=== PATIENT | male | born 1990 | race Two or more races ===

== ENCOUNTER 2017-09-22 02:20 | Emergency (ER) | payer MEDICAID ==
[2017-09-22 02:36] VITALS: RESP 16
--- NOTE | 2017-09-22 03:07 | ED PDOC ---
HPI: Eye Injury/Pain Time Seen by Provider: 09/22/17 02:43 Chief Complaint (Nursing): Eye Problem Chief Complaint (Provider): Bilateral eye irritation, drainage History Per: Patient History/Exam Limitations: no limitations Onset/Duration Of Symptoms: Days (4) Current Symptoms Are (Timing): Still Present Additional Complaint(s): 27 yo male with no medical problems presents with 4 days of bilateral eye drainage, redness and irritation. Pt states he also has been having bilateral knee discomfort since yesterday. Pt denies N/V/D. Pt denies dysuria. 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 PT states he is sexually active but always uses protection. Past Medical History Reviewed: Historical Data, Nursing Documentation, Vital Signs Vital Signs: Last Vital Signs Temp 100.6 F H 09/22/17 02:34 Pulse 104 H 09/22/17 02:34 Resp 16 09/22/17 02:34 BP 124/76 09/22/17 02:34 Pulse Ox 99 09/22/17 02:34 - Medical History PMH: HIV - Surgical History Surgical History: No Surg Hx - Family History Family History: States: No Known Family Hx - Living Arrangements Living Arrangements: With Family - Social History Current smoker - smoking cessation education provided: No - Home Medications Home Medications: Ambulatory Orders Medication Instructions Recorded Polymyxin/Trimethoprim Sulfate 1 drop XX Q6H 10 Days bottle 09/22/17 [Polytrim Ophth Soln] - Allergies Allergies/Adverse Reactions: Allergies Allergy/AdvReac Type Severity Reaction Status Date / Time No Known Allergies Allergy Verified 09/22/17 02:36 Review of Systems ROS Statement: Except As Marked, All Systems Reviewed And Found Negative Constitutional: Positive for: Fever. Negative for: Chills Eyes: Positive for: Pain, Redness, Other Cardiovascular: Negative for: Chest Pain Respiratory: Negative for: Cough, Shortness of Breath Gastrointestinal: Negative for: Nausea, Vomiting, Abdominal Pain Genitourinary Male: Negative for: Dysuria, Frequency Musculoskeletal: Positive for: Other (Knee pain) Physical Exam - Reviewed Nursing Documentation Reviewed: Yes Vital Signs Reviewed: Yes - Physical Exam Appears: Positive for: Well, Non-toxic, No Acute Distress Head Exam: Positive for: ATRAUMATIC, NORMAL INSPECTION, NORMOCEPHALIC Skin: Positive for: Normal Color, Warm, DRY Eye Exam: Positive for: EOMI, PERRL, Conjunctival injection, Other (Yellow drainage ). Negative for: Normal appearance ENT: Positive for: Normal ENT Inspection Neck: Positive for: Normal, Painless ROM Cardiovascular/Chest: Positive for: Regular Rate, Rhythm Respiratory: Positive for: Normal Breath Sounds. Negative for: Accessory Muscle Use, Respiratory Distress Gastrointestinal/Abdominal: Positive for: Normal Exam, Soft Back: Positive for: Normal Inspection Extremity: Positive for: Normal ROM, Other (No erythema ). Negative for: Tenderness, Deformity, Swelling Neurologic/Psych: Positive for: Alert, Oriented - ECG O2 Sat by Pulse Oximetry: 99 Pulse Ox Interpretation: Normal Medical Decision Making Medical Decision Making: Case discussed with Dr. Welch. Disposition - Clinical Impression Clinical Impression: Bacterial conjunctivitis of both eyes - Patient ED Disposition Is Patient to be Admitted: No Counseled Patient/Family Regarding: Diagnosis, Need For Followup, Rx Given - Disposition Referrals: [facility] [Outside] [facility] [Outside] Disposition: Routine/Home Disposition Time: 04:46 Condition: STABLE Additional Instructions: It is very important that you follow-up with a Primary Care Physician for further evaluation. Prescriptions: Polymyxin/Trimethoprim Sulfate [Polytrim Ophth Soln] 1 drop XX Q6H 10 Days bottle Instructions: Conjunctivitis ([place]) Forms: [facility] (Sinhala)
[2017-09-22] MEDS ORDERED: cefTRIAXone (Rocephin) 250 mg Inj IM STA (03:14)
[2017-09-22] MEDS ORDERED: cefTRIAXone (Rocephin) 250 mg Inj ONE (03:27)
[2017-09-22 05:30] VITALS: BP 139/73; PULSE 93; TEMP 98.4; O2SAT 97
== END 2017-09-22 05:30 | disposition home or self-care (01) ==
LOC: H.ER 02:20
DX: H10.89 Other conjunctivitis (principal)
CPT/HCPCS: 87491; 87591; 96372; 99283; J0696